=== PATIENT | male | born 1950 | race Native Hawaiian/Other Pacific Islander ===

== ENCOUNTER 2023-02-18 17:47 | Inpatient (IN) | payer OTHER ==
[2023-02-18] VITALS (7 sets, daily range): BP systolic 118–129; BP diastolic 68–77; TEMP 97.8–100.1; Ht 175.3 cm; Wt 46.9 kg
[~2023-02-18] VITALS: Ht 175.3 cm; Wt 46.9 kg
[2023-02-18 18:11] LABS: PLATELET COUNT 340 K/uL (142-355)
[2023-02-18 18:16] LABS: POTASSIUM 3.5 mmol/L (3.6-5.2)
[2023-02-19] VITALS: BP 121/68; TEMP 97.9
[2023-02-19 03:54] VITALS: BP 116/59; TEMP 97.7
[2023-02-19 07:13] LABS: PLATELET COUNT 346 K/uL (142-355)
[2023-02-19 07:24] LABS: POTASSIUM 3.1 mmol/L (3.6-5.2)
[2023-02-19 08:00] VITALS: BP 111/56; TEMP 97.6
[2023-02-19 12:00] VITALS: BP 101/59; TEMP 97.7
[2023-02-19 16:00] VITALS: BP 124/68; TEMP 98
[2023-02-19 21:07] VITALS: BP 110/61; TEMP 98.5
[2023-02-20] VITALS: BP 103/55; TEMP 98.3
[2023-02-20 04:00] VITALS: BP 115/66; TEMP 98
[2023-02-20 08:00] VITALS: BP 102/62; TEMP 98.1
[2023-02-20] MEDS ORDERED: CEFD300C2 PO (11:28)
[2023-02-20] MEDS ORDERED: ROBITUSSIN30 MG/5 ML PO (11:30)
[2023-02-20] MEDS ORDERED: AZIT250T3 PO (11:30)
[2023-02-20] MEDS ORDERED: DULCOLAX5 MG PO (11:31)
[2023-02-20] MEDS ORDERED: PRED20TA27 PO (11:31)
[2023-02-20] MEDS ORDERED: ALBU90AE13 INH (11:31)
[2023-02-20 11:59] VITALS: BP 102/62; TEMP 98.1
== END 2023-02-20 16:50 | disposition home or self-care (01) | DRG 193 ==
LOC: ED 17:47 → MED/SURG 21:32
PROVIDERS: ADMIT Family Medicine; ATTEND Internal Medicine
DX: J18.8 Other pneumonia, unspecified organism (principal); E43 Unspecified severe protein-calorie malnutrition; Z68.1 Body mass index [BMI] 19.9 or less, adult; E87.1 Hypo-osmolality and hyponatremia; R91.8 Other nonspecific abnormal finding of lung field; R06.02 Shortness of breath; R31.9 Hematuria, unspecified; J44.9 Chronic obstructive pulmonary disease, unspecified; R07.89 Other chest pain; I25.10 Atherosclerotic heart disease of native coronary artery without angina pectoris; D64.89 Other specified anemias; E87.6 Hypokalemia; F17.210 Nicotine dependence, cigarettes, uncomplicated; Z85.89 Personal history of malignant neoplasm of other organs and systems
CPT/HCPCS: 36600; 80053; 80307; 80320; 81000; 82550; 82805; 84134; 84484; 85027; 93005; 94664; 94667; 94668; 94760; 96360; 96361; 99284; J0456; J0696; J1650; J3490